=== PATIENT | male | born 1950 | race African-American/Black ===

== ENCOUNTER 2021-05-20 21:26 | Inpatient (IN) ==
[2021-05-20] MEDS ORDERED: ALBUTEROL/IPRATROPIUM 3 ML NEB RESP TX STA (21:57)
[2021-05-20] MEDS ORDERED: methylPREDNISolone SOD SUC 125 MG/2 ML VIAL IM STA (21:57)
[2021-05-20 22:38] LABS: Basophils % 0.2 % (0.0-0.8); Eosinophils # 0.1 10*3/uL (0.0-0.87); Eosinophils % 1.1 % (0.00-10.9); Hematocrit 42.6 VOL% (42.0-52.0); Hemoglobin 13.6 GM/DL (14.0-18.0); Immature Granulocytes % 0.4 %; Immature Granulocytes Absolute 0.04 #; Lymphocytes # 0.4 10*3/uL (1.4-4.0); Lymphocytes % 4.1 % (21.2-54.2); Mean Corpuscular HGB Conc 31.9 GM/DL (32-36); Mean Corpuscular Volume 89.7 FL (87-102); Mean Platelet Volume 11.3 FL (9.6-12.0); Monocytes % 5.5 % (1.7-12.7); Neutrophils % 88.7 % (38.7-73.9); Platelet Count 119 T/CUMM (130-400); Red Blood Count 4.75 MC/CUMM (3.8-5.5); Red Cell Distribution Width 14.8 % (9.3-17.3)
[2021-05-20 22:55] LABS: Albumin 3.7 G/DL (3.4-5.0); Bilirubin,Total 0.4 MG/DL (0.20-1.00); Calcium 9.1 MG/DL (8.5-10.1); Osmolality,Calculated 288.8 MOS/KG (273-304); Potassium 3.7 MMOL/L (3.5-5.1)
[2021-05-20] MEDS ORDERED: MAGNESIUM SULF RIDER 2 GM/50 ML PREMIX IV STA (23:09)
[2021-05-20 23:11] LABS: Eosinophils 2 % (0-10); Lymphocytes 7 % (20-55); Segmented Neutrophils 89 % (50-85)
[2021-05-20 23:12] LABS: Platelet Estimate Normal; Total Cells Counted 100
[2021-05-20] MEDS ORDERED: MAGNESIUM CHLORIDE 64 MG TABLET PO STA (23:12)
[2021-05-21] MEDS ORDERED: ALBUTEROL NEB SOLN 5 MG/ML 20 ML/BOTTLE CONT NEB STA (00:13)
[2021-05-21] MEDS ORDERED: NITROGLYCERIN SL 0.4 MG TABLET SL PRN (03:35)
[2021-05-21] MEDS ORDERED: ALBUTEROL 2.5 MG/3 ML NEB RESP TX PRN (03:35)
[2021-05-21] MEDS ORDERED: ACETAMINOPHEN 325 MG TABLET PO PRN (03:35)
[2021-05-21] MEDS ORDERED: ONDANSETRON 4 MG/2 ML VIAL IV PRN (03:35)
[2021-05-21] MEDS: ALBUTEROL/IPRATROPIUM 3 ML NEB RESP TX SCH ×7 (04:00→23:50)
[2021-05-21] MEDS: SODIUM CHLORIDE 0.9% 1,000 ML IV SCH (04:54)
[2021-05-21 05:50] LABS: Basophils % 0.1 % (0.0-0.8); Hematocrit 45.1 VOL% (42.0-52.0); Immature Granulocytes % 0.4 %; Immature Granulocytes Absolute 0.04 #; Lymphocytes # 0.6 10*3/uL (1.4-4.0); Mean Platelet Volume 11.7 FL (9.6-12.0); Monocytes % 1.3 % (1.7-12.7); Neutrophils % 92.2 % (38.7-73.9); Platelet Count 123 T/CUMM (130-400); Red Cell Distribution Width 14.9 % (9.3-17.3); White Blood Count 9.6 T/CUMM (4-12)
[2021-05-21 06:17] LABS: Anisocytosis 1+; Burr Cells Few; Lymphocytes 5 % (20-55); Macrocytosis 1+; Platelet Estimate Adequate; Segmented Neutrophils 91 % (50-85); Total Cells Counted 100
[2021-05-21 06:24] LABS: Albumin 3.6 G/DL (3.4-5.0); Bilirubin,Total 0.4 MG/DL (0.20-1.00); Calcium 9.2 MG/DL (8.5-10.1); Potassium 4.3 MMOL/L (3.5-5.1); Risk Ratio 2.22; Total Protein 7.8 G/DL (6.4-8.2); VLDL Cholesterol 9.8 MG/DL
[2021-05-21] MEDS: ROSUVASTATIN 20 MG TABLET PO SCH (09:18)
[2021-05-21] MEDS: cilostazoL 50 MG TABLET PO SCH ×2 (09:18→22:10)
[2021-05-21] MEDS: ASPIRIN EC 81 MG TABLET PO SCH (09:19)
[2021-05-21] MEDS: FUROSEMIDE 40 MG TABLET PO SCH (09:19)
[2021-05-21] MEDS: LEVOFLOXACIN 500 MG TABLET PO SCH (09:19)
[2021-05-21] MEDS: CLOPIDOGREL 75 MG TABLET PO SCH (09:19)
[2021-05-21] MEDS: TAMSULOSIN 0.4 MG CAPSULE PO SCH (09:19)
[2021-05-21] MEDS: PANTOPRAZOLE 40 MG VIAL IV SCH (09:19)
[2021-05-21] MEDS: methylPREDNISolone SOD SUC 40 MG/1 ML VIAL IV SCH ×3 (09:20→22:15)
[2021-05-21] MEDS: DOCUSATE SODIUM 100 MG CAPSULE PO SCH ×2 (09:20→22:09)
[2021-05-21] MEDS: ENOXAPARIN 40 MG/0.4 ML SYRINGE SUBCUT SCH (09:20)
[2021-05-21] MEDS: METOPROLOL TARTRATE 100 MG TABLET PO SCH (09:20)
[2021-05-21] MEDS: METOPROLOL TARTRATE 50 MG TABLET PO SCH (22:38)
[2021-05-22] MEDS: ALBUTEROL/IPRATROPIUM 3 ML NEB RESP TX SCH ×5 (03:30→20:00)
[2021-05-22] MEDS: SODIUM CHLORIDE 0.9% 1,000 ML IV SCH (04:24)
[2021-05-22 05:37] LABS: Basophils % 0.1 % (0.0-0.8); Eosinophils % 0.1 % (0.00-10.9); Immature Granulocytes % 0.6 %; Immature Granulocytes Absolute 0.07 #; Lymphocytes # 0.7 10*3/uL (1.4-4.0); Lymphocytes % 6.3 % (21.2-54.2); Mean Corpuscular HGB Conc 32.4 GM/DL (32-36); Mean Corpuscular Volume 89.6 FL (87-102); Mean Platelet Volume 12.3 FL (9.6-12.0); Monocytes % 9.2 % (1.7-12.7); Neutrophils % 83.7 % (38.7-73.9); Platelet Count 100 T/CUMM (130-400); Red Blood Count 4.13 MC/CUMM (3.8-5.5); Red Cell Distribution Width 14.8 % (9.3-17.3); White Blood Count 11.8 T/CUMM (4-12)
[2021-05-22 06:05] LABS: Calcium 8.7 MG/DL (8.5-10.1); Osmolality,Calculated 287.1 MOS/KG (273-304); Potassium 3.8 MMOL/L (3.5-5.1)
[2021-05-22] MEDS ORDERED: MORPHINE 2 MG/1 ML SYRINGE ONE (06:56)
[2021-05-22] MEDS ORDERED: MORPHINE 2 MG/1 ML SYRINGE IV PRN (07:00)
[2021-05-22] MEDS ORDERED: NITROGLYCERIN SL 0.4 MG TABLET SL PRN (07:00)
[2021-05-22 07:20] LABS: Basophils % 0.1 % (0.0-0.8); Eosinophils % 0.1 % (0.00-10.9); Hematocrit 40.5 VOL% (42.0-52.0); Hemoglobin 12.8 GM/DL (14.0-18.0); Immature Granulocytes % 0.6 %; Immature Granulocytes Absolute 0.09 #; Lymphocytes # 1.6 10*3/uL (1.4-4.0); Lymphocytes % 11.6 % (21.2-54.2); Mean Corpuscular HGB Conc 31.6 GM/DL (32-36); Mean Corpuscular Volume 91.2 FL (87-102); Mean Platelet Volume 11.1 FL (9.6-12.0); Monocytes % 8.6 % (1.7-12.7); Red Blood Count 4.44 MC/CUMM (3.8-5.5); Red Cell Distribution Width 14.9 % (9.3-17.3)
[2021-05-22 07:21] LABS: Platelet Count 124 T/CUMM (130-400)
[2021-05-22 07:40] LABS: Alanine Aminotransferase 25 U/L (16-61); Albumin 3.2 G/DL (3.4-5.0); Alkaline Phosphatase 111 U/L (45-117); Aspartate Amino Transferase 24 U/L (0-37); Bilirubin,Total < 0.39 MG/DL (0.20-1.00); Blood Urea Nitrogen 24 MG/DL (7-18); Calcium 8.6 MG/DL (8.5-10.1); Carbon Dioxide 25 MMOL/L (21-32); Estimated Glom Filtration Rate 56 ML/MIN; Glucose 113 MG/DL (74-106); Osmolality,Calculated 290.8 MOS/KG (273-304); Potassium 3.9 MMOL/L (3.5-5.1); Sodium 144 MMOL/L (136-145); Total Protein 6.6 G/DL (6.4-8.2)
[2021-05-22] MEDS: methylPREDNISolone SOD SUC 40 MG/1 ML VIAL IV SCH ×2 (09:19→20:44)
[2021-05-22] MEDS: ENOXAPARIN 40 MG/0.4 ML SYRINGE SUBCUT SCH (09:19)
[2021-05-22] MEDS: PANTOPRAZOLE 40 MG VIAL IV SCH (09:20)
[2021-05-22] MEDS: ASPIRIN EC 81 MG TABLET PO SCH (09:22)
[2021-05-22] MEDS: TAMSULOSIN 0.4 MG CAPSULE PO SCH (09:22)
[2021-05-22] MEDS: LEVOFLOXACIN 500 MG TABLET PO SCH (09:22)
[2021-05-22] MEDS: METOPROLOL TARTRATE 100 MG TABLET PO SCH (09:23)
[2021-05-22] MEDS: ROSUVASTATIN 20 MG TABLET PO SCH (09:23)
[2021-05-22] MEDS: FUROSEMIDE 40 MG TABLET PO SCH (09:23)
[2021-05-22] MEDS: CLOPIDOGREL 75 MG TABLET PO SCH (09:23)
[2021-05-22] MEDS: DOCUSATE SODIUM 100 MG CAPSULE PO SCH ×2 (09:23→20:43)
[2021-05-22] MEDS: cilostazoL 50 MG TABLET PO SCH ×2 (09:23→20:44)
[2021-05-22] MEDS ORDERED: MAGNESIUM SULF RIDER 2 GM/50 ML PREMIX IV ONE (10:10)
[2021-05-22] MEDS: METOPROLOL TARTRATE 50 MG TABLET PO SCH (20:43)
[2021-05-23] MEDS: ALBUTEROL/IPRATROPIUM 3 ML NEB RESP TX SCH ×6 (00:40→20:00)
[2021-05-23] MEDS: SODIUM CHLORIDE 0.9% 1,000 ML IV SCH (05:07)
[2021-05-23] MEDS: FUROSEMIDE 40 MG TABLET PO SCH (09:17)
[2021-05-23] MEDS: CLOPIDOGREL 75 MG TABLET PO SCH (09:17)
[2021-05-23] MEDS: DOCUSATE SODIUM 100 MG CAPSULE PO SCH ×2 (09:17→21:03)
[2021-05-23] MEDS: ROSUVASTATIN 20 MG TABLET PO SCH (09:18)
[2021-05-23] MEDS: ENOXAPARIN 40 MG/0.4 ML SYRINGE SUBCUT SCH (09:18)
[2021-05-23] MEDS: LEVOFLOXACIN 500 MG TABLET PO SCH (09:18)
[2021-05-23] MEDS: methylPREDNISolone SOD SUC 40 MG/1 ML VIAL IV SCH ×2 (09:18→21:03)
[2021-05-23] MEDS: TAMSULOSIN 0.4 MG CAPSULE PO SCH (09:18)
[2021-05-23] MEDS: ASPIRIN EC 81 MG TABLET PO SCH (09:18)
[2021-05-23] MEDS: METOPROLOL TARTRATE 100 MG TABLET PO SCH (09:18)
[2021-05-23] MEDS: cilostazoL 50 MG TABLET PO SCH ×2 (09:59→21:02)
[2021-05-23] MEDS: METOPROLOL TARTRATE 50 MG TABLET PO SCH (21:02)
[2021-05-24] MEDS: ALBUTEROL/IPRATROPIUM 3 ML NEB RESP TX SCH ×3 (00:29→07:25)
[2021-05-24] MEDS: SODIUM CHLORIDE 0.9% 1,000 ML IV SCH (06:30)
[2021-05-24 07:22] VITALS: BP 154/91
[2021-05-24] MEDS: ASPIRIN EC 81 MG TABLET PO SCH (09:40)
[2021-05-24] MEDS: TAMSULOSIN 0.4 MG CAPSULE PO SCH (09:40)
[2021-05-24] MEDS: CLOPIDOGREL 75 MG TABLET PO SCH (09:40)
[2021-05-24] MEDS: ROSUVASTATIN 20 MG TABLET PO SCH (09:40)
[2021-05-24] MEDS: DOCUSATE SODIUM 100 MG CAPSULE PO SCH (09:40)
[2021-05-24] MEDS: METOPROLOL TARTRATE 100 MG TABLET PO SCH (09:40)
[2021-05-24] MEDS: LEVOFLOXACIN 500 MG TABLET PO SCH (09:41)
[2021-05-24] MEDS: cilostazoL 50 MG TABLET PO SCH (09:41)
[2021-05-24] MEDS: FUROSEMIDE 40 MG TABLET PO SCH (09:41)
[2021-05-24] MEDS: methylPREDNISolone SOD SUC 40 MG/1 ML VIAL IV SCH (09:42)
[2021-05-24] MEDS: ENOXAPARIN 40 MG/0.4 ML SYRINGE SUBCUT SCH (09:43)
== END 2021-05-24 11:20 | disposition home or self-care (01) | DRG 191 ==
LOC: EDUNIT# → EDBD → N.ED 21:26 → N.EDINP 21:26 → N.5E 05-21 04:52 → N.TELEN 05-22 08:22
PROVIDERS: ADMIT Internal Medicine; ATTEND Internal Medicine